=== PATIENT | male | born 1990 | race Two or more races ===

== ENCOUNTER 2020-03-04 11:01 | Emergency (ER) | payer BC ==
[~2020-03-04] VITALS: Ht 180.3 cm; Wt 84.8 kg
[2020-03-04 12:18] VITALS: BP 122/79
== END 2020-03-04 12:56 | disposition home or self-care (01) ==
LOC: ER 11:01
DX: S69.92XA Unspecified injury of left wrist, hand and finger(s), initial encounter (principal); W19.XXXA Unspecified fall, initial encounter; Y93.89 Activity, other specified; Y92.89 Other specified places as the place of occurrence of the external cause; Y99.8 Other external cause status
CPT/HCPCS: 73130

== ENCOUNTER 2024-08-05 11:34 | Emergency (ER) | payer BC, OTHER ==
[~2024-08-05] VITALS: Ht 180.3 cm; Wt 84.8 kg
--- NOTE | 2024-08-05 12:01 | ED.PDOC ---
History of Present Illness HPI Comments 34 y.o male presents to the ED for a chief complaint of cough, fever, nausea, vomiting, and diarrhea that presented 2 days ago with new onset tingling sensation to bilateral hands, feet and lips today. Patient reports while blood pressure cuff was on, he had an episode of carpopedal spasms. No chest pain, SOB, fever, chills reported today. He denies any medical, surgical history or allergies. Chief Complaint: Flu like Time Seen by MD: 11:54 Primary Care Provider: NONE Reviewed Notes: Nurses Notes, Medications, Allergies Allergies: Coded Allergies: No Known Drug Allergy (Verified Allergy, Unknown, 03/04/20) Home Meds Active Scripts Oseltamivir Phosphate (Tamiflu) 45 Mg Cap, 1 CAP PO BID, #10 CAP Prov:REGGIE SHAH MD 08/05/24 Information Source: Patient Mode of Arrival: Ambulatory Severity: Moderate Timing: Days (2) Duration: Since onset Prehospital treatment: None Associated signs and symptoms Generalized weakness, electrolyte imbalance, COVID-19, influenza a and influenza B Past Medical History PAST MEDICAL HISTORY: Denies Surgical History: Denies all surgeries Family History Family History: Reviewed,noncontributory to illness Social History Smoker: Non-Smoker Alcohol: Occasionally Drugs: Denies Drug Use Lives In: Home Constitutional: reports: fever; denies: chills, diaphoresis, fatigue, malaise, sweats, weakness, others EENTM: denies: blurred vision, double vision, ear bleeding, ear discharge, ear drainage, ear pain, ear ringing, eye pain, eye redness, hearing loss, mouth pain, mouth swelling, nasal discharge, nose bleeding, nose congestion, nose pain, photophobia, tearing, throat pain, throat swelling, voice changes, others Respiratory: reports: cough; denies: hemoptysis, orthopnea, SOB at rest, shortness of breath, SOB with excertion, stridor, wheezing, others Cardiovascular: denies: chest pain, dizzy spells, diaphoresis, Dyspnea on exer tion, edema, irregular heart beat, left arm pain, lightheadedness, palpitations, PND, syncope, others Gastrointestinal: reports: diarrhea, nausea, vomiting; denies: abdomen distended, abdominal pain, blood streaked bowels, constipated, dysphagia, difficulty swallowing, hematemesis, melena, poor appetite, poor fluid intake, rectal bleeding, rectal pain, others Genitourinary: denies: burning, dysuria, flank pain, frequency, hematuria, incontinence, penile discharge, penile sore, pain, testicle pain, testicle swelling, urgency, others Neurological: denies: dizziness, fainting, headache, left sided numbness, left sided weakness, numbness, paresthesia, pre-existing deficit, right sided numbness, right sided weakness, seizure, speech problems, tingling, tremors, weakness, others Musculoskeletal: reports: others (carpopedal spasm); denies: back pain, gout, joint pain, joint swelling, muscle pain, muscle stiffness, neck pain Integumetry: denies: bruises, change in color, change in hair/nails, dryness, laceration, lesions, lumps, rash, wounds, others Allergic/Immunocompromised: denies: Difficulty Healing, Frequent Infections, Hives, Itching, others Endocrine: denies: excessive hunger, excessive sweating, excessive thirst, excessive urination, flushing, intolerance to cold, intolerance to heat, unexplained weight gain, unexplained weight loss, others Psychiatric: denies: anxiety, bipolar disorder, depression, hopeless, panic disorder, schizophrenia, sleepless, suicidal, others All Other Systems: Reviewed and Negative Physical Exam General Appearance: No Apparent Distress HEENT: Normal ENT Inspection, Pharynx Normal, TMs Normal, Other (Congestion) Neck: Full Range of Motion, Non-Tender, Normal, Normal Inspection Respiratory: Chest Non-Tender, Lungs Clear, No Accessory Muscle Use, No Respiratory Distress, Normal Breath Sounds Cardiovascular: No Edema, No JVD, No Murmur, No Gallop, Normal Peripheral Pulses, Regular Rate/Rhythm Breast Exam: Deferred Gastrointestinal: No Organomegaly, Non Tender, No Pulsatile Mass, Normal Bowel Sounds, Soft Genitalia: Deferred Pelvic: Deferred Rectal: Deferred Extremities: No calf tenderness, Normal capillary refill, Normal inspection, Normal range of motion, Non-tender, No pedal edema Musculoskeletal : Apperance: Normal Neurologic: Alert, enamel cracker II-XII nml as Tested, No Motor Deficits, Normal Affect, Normal Mood, No Sensory Deficits Cerebellar Function: Normal Reflexes: Normal Skin: Dry, Normal Color, Warm Lymphatic: No Adenopathy Was a procedure done? Was a procedure done?: No Differential Dx Considerations may include: Dehydration, electrolyte imbalance, Anxiety, carpopedal spasm, Influenza, URI, Pneumonia X-Ray, Labs, Meds, VS Vital Signs Date Time Temp Pulse Resp B/P (MAP) Pulse Ox O2 Delivery O2 Flow Rate FiO2 08/05/24 11:48 100.0 96 16 133/76 (95) 100 Lab Test 08/05/24 13:20 08/05/24 12:39 Range/Units Sodium Level Pending Potassium Level Pending Chloride Level Pending Carbon Dioxide Level Pending Anion Gap Pending Blood Urea Nitrogen Pending Creatinine Pending Glomerular Filtration Rate Calc Pending BUN/Creatinine Ratio Pending Serum Glucose Pending Calcium Level Pending Influenza Type A Antigen Negative Negative Influenza Type B Antigen Positive Negative SARS-CoV-2 Antigen (Rapid) Negative NEGATIVE CHEST RADIOGRAPH IMPRESSION: No evidence of acute cardiopulmonary disease. The patient was influenza being as positive The influenza a and COVID test are negative The patient was being discharged on Tamiflu The patient will return to the emergency department's the condition worsens. Images Reviewed?: Images reviewed and evaluated by me Time of 1ST Reevaluation: 12:01 Reevaluation 1ST: Unchanged Patient Education/Counseling: Diagnosis, Treatment, Prognosis, Need For Follow Up Family Education/Counseling: No Family Present Departure 1 Departure Time of Disposition: 13:37 Impression: Primary Impression: Influenza B Disposition: HOME / SELF CARE / HOMELESS Condition: Fair e-Prescriptions Oseltamivir Phosphate (Tamiflu) 45 Mg Cap 1 CAP PO BID, #10 CAP Prov: REGGIE SHAH MD 08/05/24 Discharged With: Self Critical Care Note Critical Care Time?: No Stability Stability form required: No I personally scribed for REGGIE SHAH MD ([email or web address]) on 08/05/24 at 12:01. Electronically submitted by Crissy Greene ([facility]). I personally scribed for REGGIE SHAH MD ([email or web address]) on 08/05/24 at 13:05. Electronically submitted by Crissy Greene ([facility]). REGGIE SHAH MD Aug 05, 2024 12:01
--- NOTE | 2024-08-05 12:44 | DVH ---
CHEST RADIOGRAPH Indication: cough Technique: Frontal and lateral view of the chest was obtained Comparison: None FINDINGS: Lines and Tubes: None Lungs: Clear Pleura: No effusion. No pneumothorax. Cardiomediastinal contours: Unremarkable Bones: Unremarkable IMPRESSION: No evidence of acute cardiopulmonary disease.
[2024-08-05 13:10] LABS: Rapid Influenza A Negative (Negative)
[2024-08-05 13:12] LABS: Rapid Influenza B Positive (Negative)
[2024-08-05 13:13] LABS: COVID19 ANTIGEN SOFIA FIA NEGATIVE (NEGATIVE)
[2024-08-05 13:30] VITALS: BP 130/84; PULSE 100; RESP 24; TEMP 99; O2SAT 96
[2024-08-05] MEDS ORDERED: OSEL45CA PO (13:36)
[2024-08-05 13:54] LABS: Chloride 105 mmol/L (98-107); Potassium 3.7 mmol/L (3.5-5.1); Sodium 137 mmol/L (136-145)
[2024-08-05 13:55] LABS: Anion Gap 10 (5-15); Calcium 9.8 mg/dL (8.7-10.4); Carbon Dioxide 22 mmol/L (20-31)
[2024-08-05 14:00] LABS: BUN/Creatinine Ratio 8.7 (10.0-20.0)
[2024-08-05 14:01] LABS: Blood Urea Nitrogen 8 mg/dL (9-23); Glucose 117 mg/dL (74-106)
== END 2024-08-05 13:52 | disposition home or self-care (01) ==
LOC: ER 11:34
DX: J10.1 Influenza due to other identified influenza virus with other respiratory manifestations (principal); R19.7 Diarrhea, unspecified; R50.9 Fever, unspecified; R11.2 Nausea with vomiting, unspecified; Z20.822 Contact with and (suspected) exposure to COVID-19
CPT/HCPCS: 36415; 71046; 80048; 87426; 87804